=== PATIENT | female | born 1945 | race Caucasian/White ===

== ENCOUNTER 2018-04-05 12:36 | Outpatient (CLI) | payer MEDICARE | END 2018-04-05 12:37 | disposition home or self-care (01) | LOC: BICMAMMO 12:36 | PROVIDERS: ATTEND Internal Medicine | DX: Z12.31 Encounter for screening mammogram for malignant neoplasm of breast (principal); R92.1 Mammographic calcification found on diagnostic imaging of breast; N64.89 Other specified disorders of breast; Z80.3 Family history of malignant neoplasm of breast; Z80.41 Family history of malignant neoplasm of ovary | CPT/HCPCS: 77063; 77067 ==

== ENCOUNTER 2018-04-07 14:20 | Outpatient (CLI) | payer MEDICARE | END 2018-04-07 14:21 | disposition home or self-care (01) | LOC: BICMAMMO 14:20 | PROVIDERS: ATTEND Internal Medicine | DX: R92.2 Inconclusive mammogram (principal); Z80.3 Family history of malignant neoplasm of breast | CPT/HCPCS: 76642; 77065; G0279 ==

== ENCOUNTER → 2018-04-20 | Day surgery (SDC) | payer MEDICARE ==
--- NOTE | 2018-04-20 15:46 | ULT ---
ULTRASOUND GUIDED RIGHT BREAST BIOPSY 04/20/18 PROVIDED CLINICAL HISTORY: Right breast mass. FINDINGS: Informed consent was obtained from the patient. the known 9 o'clock right breast mass was localized s onographically and the skin overlying this region prepped and draped in the usual sterile manner. Sof t tissues were infiltrated with 1% lidocaine. Small incision was made. Under continuous sonographic g uidance, a 14 gauge core biopsy device was advanced adjacent to the lesion with multiple core samples obtained. The needle was withdrawn and a biopsy clip was inserted under continuous sonographic guid ance. The biopsy clip deployment device was removed and hemostasis achieved. No immediate complicatio ns. Postprocedure mammograms demonstrate appropriate clip deployment. IMPRESSION: Technically successful right breast biopsy. Please correlate with histology results to follow. POS: MARY CARMEN
== END ==
LOC: BICULT 12:09
PROVIDERS: ATTEND Surgery
PROC: 0HBT3ZX Excision of Right Breast, Percutaneous Approach, Diagnostic (ICD-10-PCS; principal; 2018-04-20)
DX: C50.811 Malignant neoplasm of overlapping sites of right female breast (principal); Z88.2 Allergy status to sulfonamides
CPT/HCPCS: 19100; 76942; 88305; 88341; 88342

== ENCOUNTER 2018-05-07 11:53 | Outpatient (CLI) | payer MEDICARE ==
[2018-05-07 13:32] LABS: #Basophils 0.1 thou/uL (0.0-0.2); #Eosinphils 0.2 thou/uL (0.0-0.7); #Lymphocytes 2.2 thou/uL (1.20-3.40); #Monocytes 0.6 thou/uL (0.11-0.59); %Basophils 0.9 % (0.0-1.0); %Eosinophils 2.5 % (0.0-10.0); %Lymphocytes 31.1 % (21.0-51.0); %Monocytes 7.9 % (0.0-10.0); %Neutrophils 57.5 % (42.0-75.0); Hemoglobin 12.6 g/dL (12.0-16.0); Mean Corpuscular HGB CONC 32.7 g/dL (32.0-36.0); Mean Corpuscular Hemoglobin 32.2 pg (27.0-31.0); Mean Corpuscular Volume 98.3 fL (78.0-98.0); Mean Platelet Volume 8.8 fL (7.4-10.4); Platelet Count 216 thou/uL (130-400); RBC Distribution Width 11.9 % (11.5-14.5); Red Blood Cell (RBC) Count 3.92 mill/uL (4.20-5.40); White Blood Cell (WBC) Count 6.9 thou/uL (4.8-10.8)
[2018-05-07 14:01] LABS: ALT (SGPT) 14 U/L (8-55); AST (SGOT) 20 U/L (5-34); Albumin 4.2 g/dL (3.4-4.8); Alkaline Phosphatase 67 U/L (40-150); Anion Gap 10 mmol/L (10-20); BUN (Urea Nitrogen) 13 mg/dL (9.8-20.1); Bilirubin, Total 0.4 mg/dL (0.2-1.2); Calc. Creatinine Clearance 0 mL/min (70-130); Calcium 9.4 mg/dL (7.8-10.44); Carbon Dioxide 28 mmol/L (23-31); Chloride 103 mmol/L (98-107); Estimated GFR-MDRD 81; Globulin 2.9 g/dL (2.4-3.5); Glucose 82 mg/dL (83-110); Potassium 4.1 mmol/L (3.5-5.1); Protein, Total 7.1 g/dL (6.0-8.3); Sodium 137 mmol/L (136-145)
--- NOTE | 2018-05-13 05:58 | EKG ---
Test Reason : Blood Pressure : / mmHG Vent. Rate : 050 BPM Atrial Rate : 050 BPM P-R Int : 156 ms QRS Dur : 086 ms QT Int : 426 ms P-R-T Axes : 070 089 068 degrees QTc Int : 388 ms Sinus bradycardia Otherwise normal ECG No previous ECGs available Confirmed by SONY ACOSTA ([id number]) on 05/13/2018 5:57:52 AM Referred By: ARIK Confirmed By:SONY ACOSTA
== END 2018-05-07 11:54 | disposition home or self-care (01) ==
LOC: LABBT 11:53
PROVIDERS: ATTEND Surgery
DX: Z01.812 Encounter for preprocedural laboratory examination (principal); C50.911 Malignant neoplasm of unspecified site of right female breast
CPT/HCPCS: 80053; 85025; 93005; 93010

== ENCOUNTER 2018-05-12 06:55 | Day surgery (SDC) | payer MEDICARE ==
[2018-05-07 13:13] VITALS: BMI 23.1
[2018-05-12] MEDS ORDERED: CEFAZOLIN/Water 2 GM/20 ML SYRINGE ONE (10:31)
[2018-05-12] MEDS ORDERED: Isosulfan Blue 50 MG/5 ML VIAL ONE (10:32)
[2018-05-12] MEDS ORDERED: Bupivacaine HCl 0.5%/Epinephrine 1:200,000/PF 30 ml Vial ONE (10:32)
[2018-05-12] MEDS ORDERED: Lidocaine 2% PF 5 ML VIAL ONE (10:32)
[2018-05-12] MEDS ORDERED: Fentanyl 100 MCG/2 ML VIAL ONE ×2 (10:35→12:34)
[2018-05-12] MEDS ORDERED: Famotidine/PF 20 mg/2ml Vial ONE (10:35)
--- NOTE | 2018-05-12 11:23 | NM ---
NUCLEAR MEDICINE LYMPHOSCINTIGRAPHY: HISTORY: A 72-year-old female with a history of malignant neoplasm of unspecified site, unspecified female bernardino ast. FINDINGS: Approximately 0.4 mCi Technetium 99m filtered sulfur colloid was injected subcutaneously around the a reola. Immediate imaging demonstrates a focal area of increased activity in the right axilla consistent with a lymph node. IMPRESSION: Successful lymphoscintigraphy with increased activity in a right axillary lymph node. POS: MARY CARMEN
[2018-05-12] MEDS ORDERED: Promethazine HCl 25 MG/ML VIAL IM PRN (12:31)
[2018-05-12] MEDS ORDERED: Meperidine HCl/PF 25 MG/ML VIAL SLOW IVP PRN (12:31)
[2018-05-12] MEDS ORDERED: HYDROmorphone 2 MG/ML VIAL SLOW IVP PRN (12:31)
[2018-05-12] MEDS ORDERED: Ondansetron HCl/PF 4 MG/2 ML Vial IVP PRN (12:31)
[2018-05-12] MEDS ORDERED: Promethazine HCl 25 MG/ML VIAL SLOW IVP PRN (12:31)
[2018-05-12] MEDS ORDERED: Ketorolac Tromethamine 30 MG/ML VIAL IVP PRN (12:31)
[2018-05-12] MEDS ORDERED: Morphine 2 MG/ML SYRINGE ONE (13:07)
--- NOTE | 2018-05-12 14:06 | MMO ---
MAMMOGRAPHIC GUIDED RIGHT BREAST MASS NEEDLE LOCALIZATION: INDICATIONS: Right breast cancer. TECHNIQUE: Informed consent was obtained. The patient was positioned in LM positioning in the mammographic unit . Pre-procedure mammograms were obtained. Localization of the right breast mass and clip was perfor med. The site overlying this region, at the lateral aspect of the right breast, was sterilely preppe d and draped. Buffered 1% Lidocaine was administered to the overlying subcutaneous tissues. Under m ammographic guidance, a 7.5 cm [place] needle was guided through the lesion, and a 90 projection was obtained to verify needle positioning. The patient tolerated the procedure without difficulty. IMPRESSION: BI-RADS category 6-Known biopsy proven malignancy, status post mammographic guided needle and wire lo calization of the right breast mass with associated clip. POS: MARY CARMEN
--- NOTE | 2018-05-12 14:08 | MMO ---
RIGHT BREAST MASS SURGICAL SPECIMEN: FINDINGS: The surgical specimen does contain the mass, clip, as well as portions of the wire. IMPRESSION: BIRADS category 6 - known biopsy-proven malignancy. The specimen contains the mass, as well as the m etallic wire. Findings were called to Dr. Salas in the operating room at 11:55 a.m. on 05/12/2018. CODE CR POS: [facility]
[2018-05-12] MEDS ORDERED: traMADol HCl 50 MG TAB ONE (14:24)
[2018-05-12] MEDS ORDERED: Ketorolac Tromethamine 30 MG/ML VIAL ONE (15:06)
[2018-05-12] MEDS ORDERED: Ondansetron PF 4 MG/2 ML Vial ONE (15:06)
[2018-05-12] MEDS ORDERED: Lidocaine 1% PF 5 ML VIAL ONE (15:06)
[2018-05-12] MEDS ORDERED: ePHEDrine/0.9% NaCl/PF SYRINGE 50 mg/10 ml ONE (15:06)
[2018-05-12] MEDS ORDERED: PROPOFOL 200 MG/20 ML VIAL ONE (15:06)
[2018-05-12] MEDS ORDERED: PHENYLEPHRINE-NS 100 MCG/ML 10 ML SYRINGE ONE ×2 (15:06)
[2018-05-12] MEDS ORDERED: Dexamethasone 20 MG/5 ML VIAL ONE (15:06)
--- NOTE | 2018-05-13 13:00 | OP ---
DATE OF PROCEDURE: 05/12/2018 PREOPERATIVE DIAGNOSIS: Right breast cancer. SURGEON: Gurpreet Salas M.D. PROCEDURE PERFORMED: Right needle localization lumpectomy with sentinel lymph node biopsy. INDICATIONS: This is a 72-year-old female who had a change in her mammogram. She underwent a core n eedle biopsy positive for adenocarcinoma. FINDINGS: Single sentinel node was found. It was negative by touch prep. Successful removal of the tumor and clip. PROCEDURE IN DETAIL: After informed consent was obtained, patient was taken to the operating room an d given general endotracheal anesthesia. She had undergone injection of radionucleotide as well as p lacement of a localizing needle in Radiology department. Her right breast and axilla were prepped an d draped in usual fashion. Lymphazurin infiltrated subareolar and peritumoral. The Neoprobe was use d. A baseline was performed with counts around 5, transcutaneous counts of 25 were found in one spot . A longitudinal axillary incision was performed. The subcu divided sharply and was traced down to in vivo count of 120. A single fairly small lymph node was found. This was dissected out. Efferent and afferent lymphatics were ligated with 3-0 Vicryl ties. Ex vivo counts of 160 were found. This was sent as sentinel node. All subsequent counts were less than 10. No other high spots were found. While awaiting the results of the biopsy, a curvilinear incision was performed. The subcu divided sharply and a core of breast tissue excised around the needle tract. This was marked with the blue d ye as medial. The needle as anterior and a suture was then used to tony superior, sent to mammograph y, which revealed it did contain the clip, the mass and the wire sent to pathology for further analys is. Hemostasis was achieved utilizing electrocautery as well as interrupted 3-0 Vicryl suture. Subc u reapproximated with interrupted 3-0 Vicryl. Skin closed with a running subcuticular 4-0 Rapide. S josé miguel-Strips applied. Sterile bandage applied. The patient tolerated the procedure well and was powell sferred to recovery in good condition. Sponge and needle count verified correct x2.
== END 2018-05-12 15:27 | disposition home or self-care (01) ==
LOC: SDC 06:55
PROVIDERS: ATTEND Surgery
PROC: 0HBT0ZZ Excision of Right Breast, Open Approach (ICD-10-PCS; principal; 2018-05-12)
PROC: 07B50ZX Excision of Right Axillary Lymphatic, Open Approach, Diagnostic (ICD-10-PCS; 2018-05-12)
DX: C50.511 Malignant neoplasm of lower-outer quadrant of right female breast (principal); D64.9 Anemia, unspecified; E78.00 Pure hypercholesterolemia, unspecified; Z88.2 Allergy status to sulfonamides; Z79.899 Other long term (current) drug therapy
CPT/HCPCS: 19281; 19301; 38525; 76098; 78195; 88307; 88333; 88341; 88342; 96374; A9541; Q9968; J0131; J0670; J1100; J1885; J2001; J2270; J2405; J2704; J3010; S0028

== ENCOUNTER 2018-09-27 14:20 | Outpatient (CLI) | payer MEDICARE ==
--- NOTE | 2018-09-27 15:49 | ULT ---
SOFT TISSUE RIGHT AXILLA: Indication: Right axilla pain. Previous resection. FINDINGS: No mass or adenopathy identified. No sonographic abnormality is seen in the right axilla at the site of pain. IMPRESSION: Unremarkable soft tissue ultrasound right axilla. POS: MARY CARMEN
== END 2018-09-27 14:21 | disposition home or self-care (01) ==
LOC: BICULT 14:20
PROVIDERS: ATTEND Surgery
DX: D36.10 Benign neoplasm of peripheral nerves and autonomic nervous system, unspecified (principal)
CPT/HCPCS: 76999

== ENCOUNTER 2019-03-23 13:49 | Outpatient (CLI) | payer MEDICARE ==
--- NOTE | 2019-03-23 14:20 | RAD ---
4 VIEW CERVICAL SPINE SERIES: Date: 03/23/19 INDICATION: Neck pain. FINDINGS: Moderate multilevel degenerative changes of the cervical spine present. Extension and flexion views r eveal no significant translational motion. No compression deformity. IMPRESSION: Moderate multilevel degenerative change without significant subluxation or translational motion. POS: [facility]
== END 2019-03-23 13:50 | disposition home or self-care (01) ==
LOC: RAD 13:49
PROVIDERS: ATTEND Nurse Practitioner Family
DX: M47.22 Other spondylosis with radiculopathy, cervical region (principal)
CPT/HCPCS: 72050

== ENCOUNTER 2019-04-22 13:19 | Outpatient (CLI) | payer MEDICARE ==
--- NOTE | 2019-04-22 14:08 | MMO ---
Bilateral MAMMO Bilat Diag [facility]. CLINICAL HISTORY: Patient is 73 years old and is seen for diagnostic exam. The patient has the following family history of breast cancer: sister. The patient has a history of invasive ductal right breast carcinoma in April,. The patient has a history of right Ultrasound Guided Core Biopsy in April, - invasive ductal carcinoma and right Lumpectomy in April, - invasive ductal carcinoma. VIEWS: The views performed were: bilateral craniocaudal with tomosynthesis; bilateral mediolateral oblique with tomosynthesis; and bilateral mediolateral with tomosynthesis. FILMS COMPARED: The present examination has been compared to prior imaging studies performed at [facility] on 03/10/2016, 04/03/2017, 04/05/2018 and 04/07/2018. This study has been interpreted with the assistance of computer-aided detection. MAMMOGRAM FINDINGS: There are scattered fibroglandular densities. Finding 1: There are new post operative changes seen in the right breast. Finding 2: There are benign appearing calcifications seen in the left breast. There are no suspicious masses, suspicious calcifications, or new areas of architectural distortion. IMPRESSION: THERE IS NO MAMMOGRAPHIC EVIDENCE OF MALIGNANCY. A ROUTINE FOLLOW-UP MAMMOGRAM IN 1 YEAR IS RECOMMENDED. THE RESULTS OF THIS EXAM WERE SENT TO THE PATIENT. ACR BI-RADS Category 2 - Benign finding MAMMOGRAPHY NOTE: 1. A negative mammogram report should not delay a biopsy if a dominant of clinically suspicious mass is present. 2. Approximately 10% to 15% of breast cancers are not detected by mammography. 3. Adenosis and dense breasts may obscure an underlying neoplasm. Reported by: NINA FRIEND MD Electonically Signed: [id number]
== END 2019-04-22 13:20 | disposition home or self-care (01) ==
LOC: BICMAMMO 13:19
PROVIDERS: ATTEND Internal Medicine Hematology & Oncology
DX: C50.911 Malignant neoplasm of unspecified site of right female breast (principal)
CPT/HCPCS: 77066; G0279

== ENCOUNTER 2021-05-23 14:48 | Outpatient (CLI) | payer MEDICARE | END 2021-05-23 14:49 | disposition home or self-care (01) | LOC: BICMAMMO 14:48 | PROVIDERS: ATTEND Internal Medicine Hematology & Oncology | DX: C50.411 Malignant neoplasm of upper-outer quadrant of right female breast (principal); M81.0 Age-related osteoporosis without current pathological fracture; T38.6X5A Adverse effect of antigonadotrophins, antiestrogens, antiandrogens, not elsewhere classified, initial encounter; M85.89 Other specified disorders of bone density and structure, multiple sites | CPT/HCPCS: 77066; 77080; G0279 ==

== ENCOUNTER 2022-05-26 10:47 | Outpatient (CLI) | payer MEDICARE | END 2022-05-26 10:48 | disposition home or self-care (01) | LOC: BICMAMMO 10:47 | PROVIDERS: ATTEND Internal Medicine Hematology & Oncology | DX: M81.0 Age-related osteoporosis without current pathological fracture (principal); C50.411 Malignant neoplasm of upper-outer quadrant of right female breast; T38.6X5A Adverse effect of antigonadotrophins, antiestrogens, antiandrogens, not elsewhere classified, initial encounter; M85.851 Other specified disorders of bone density and structure, right thigh; M85.852 Other specified disorders of bone density and structure, left thigh | CPT/HCPCS: 77066; 77080; G0279 ==

== ENCOUNTER 2023-04-26 09:11 | Emergency (ER) | payer MEDICARE ==
[2023-04-26] MEDS ORDERED: Morphine 4 MG/ML VIAL ONE (10:33)
[2023-04-26 10:43] LABS: #Eosinphils 0.3 thou/uL (0.0-0.7); %Basophils 0.2 % (0.0-1.0); %Eosinophils 2.6 % (0.0-10.0); %Lymphocytes 13.4 % (21.0-51.0); %Monocytes 10.8 % (0.0-10.0); %Neutrophils 72.6 % (42.0-75.0); Hematocrit 37.3 % (36.0-47.0); Hemoglobin 12.2 g/dL (12.0-16.0); Mean Corpuscular HGB CONC 32.7 g/dL (32.0-36.0); Mean Corpuscular Hemoglobin 31.2 pg (27.0-31.0); Mean Corpuscular Volume 95.4 fl (78.0-98.0); Mean Platelet Volume 10.9 fL (7.4-10.4); Platelet Count 201 10x3/uL (130-400); RBC Distribution Width 13.9 % (11.5-14.5); Red Blood Cell (RBC) Count 3.91 mill/uL (4.20-5.40); White Blood Cell (WBC) Count 9.6 10x3/uL (4.8-10.8)
[2023-04-26] MEDS ORDERED: Iopamidol-370 76% 500 ML MDV (1 ML CHARGE) ONE (10:55)
[2023-04-26 11:10] LABS: ALT (SGPT) 18 U/L (8-55); AST (SGOT) 20 U/L (5-34); Albumin 3.5 g/dL (3.4-4.8); Alkaline Phosphatase 82 U/L (40-110); Anion Gap 11 mmol/L (10-20); BUN (Urea Nitrogen) 13 mg/dL (9.8-20.1); Bilirubin, Total 0.4 mg/dL (0.2-1.2); Calc. Creatinine Clearance 0 mL/min (70-130); Calcium 9.2 mg/dL (7.8-10.44); Carbon Dioxide 29 mmol/L (23-31); Chloride 101 mmol/L (98-107); Estimated GFR 91; Globulin 3.1 g/dL (2.4-3.5); Glucose 92 mg/dL (83-110); Lipase Less than 4 U/L (8-78); Potassium 4.3 mmol/L (3.5-5.1); Protein, Total 6.6 g/dL (5.8-8.1); Sodium 137 mmol/L (136-145)
[2023-04-26 12:15] LABS: Bacteria/HPF None Seen HPF (None Seen); Bilirubin Negative (Negative); Blood, Urine Negative (Negative); CAUTI Indications for Culture Pelvic or flank pain; Clarity Clear (Clear); Glucose, Urine (Dipstick) Normal (Negative); Ketone, Urine Negative (Negative); Leukocyte Negative Leu/uL (Negative); Nitrite Negative (Negative); Protein, Urine (Dipstick) Negative (Neg-Trace); RBC/HPF 0-3 HPF (0-3); Specific Gravity, Urine 1.009 (1.002-1.036); Squamous Epithelial 0-3 HPF (0-3); Urobilinogen Normal mg/dL (Less than 2); WBC/HPF 0-3 HPF (0-3)
[2023-04-26 12:19] LABS: Urine Culture Reflex No No
[2023-04-26] MEDS ORDERED: HYDROcodone/Acetaminophen 5/325 mg Tablet ONE (14:22)
== END 2023-04-26 14:22 | disposition home or self-care (01) ==
LOC: ERS 09:11
DX: M54.9 Dorsalgia, unspecified (principal)
CPT/HCPCS: 36415; 74177; 80053; 81001; 83690; 85025; 96361; 96374; J2270; Q9967

== ENCOUNTER 2023-06-23 08:54 | Outpatient (CLI) | payer MEDICARE | END 2023-06-23 08:55 | disposition home or self-care (01) | LOC: BICMAMMO 08:54 | PROVIDERS: ATTEND Internal Medicine Hematology & Oncology | DX: Z08 Encounter for follow-up examination after completed treatment for malignant neoplasm (principal); M81.0 Age-related osteoporosis without current pathological fracture; M85.851 Other specified disorders of bone density and structure, right thigh; M85.852 Other specified disorders of bone density and structure, left thigh; Z85.3 Personal history of malignant neoplasm of breast | CPT/HCPCS: 77066; 77080; G0279 ==

== ENCOUNTER 2023-12-30 12:18 | Emergency (ER) | payer MEDICARE ==
[2023-12-30 13:46] LABS: #Basophils 0.03 10x3/uL (0.0-0.2); %Basophils 0.3 % (0.0-1.0); %Eosinophils 2.1 % (0.0-10.0); %Lymphocytes 21.5 % (21.0-51.0); %Monocytes 10.5 % (0.0-10.0); %Neutrophils 65.4 % (42.0-75.0); Hematocrit 40.3 % (36.0-47.0); Hemoglobin 13.3 g/dL (12.0-16.0); Mean Corpuscular Hemoglobin 30.9 pg (27.0-31.0); Mean Corpuscular Volume 93.7 fL (78.0-98.0); Mean Platelet Volume 12.1 fL (7.4-10.4); Platelet Count 221 10x3/uL (130-400); RBC Distribution Width 13.7 % (11.5-14.5)
[2023-12-30] MEDS ORDERED: Aspirin Chewable 81 MG TAB ONE (14:02)
[2023-12-30 14:04] LABS: Troponin I Less than 0.010 ng/mL (< 0.028)
[2023-12-30 14:38] LABS: ALT (SGPT) 12 U/L (8-55); AST (SGOT) 18 U/L (5-34); Albumin 3.5 g/dL (3.4-4.8); Alkaline Phosphatase 103 U/L (40-110); Anion Gap 13 mmol/L (10-20); BUN (Urea Nitrogen) 23 mg/dL (9.8-20.1); Bilirubin, Total 0.3 mg/dL (0.2-1.2); Calc. Creatinine Clearance 0 mL/min (70-130); Calcium 9.5 mg/dL (7.8-10.44); Carbon Dioxide 27 mmol/L (23-31); Chloride 103 mmol/L (98-107); Estimated GFR 89; Globulin 3.6 g/dL (2.4-3.5); Glucose 53 mg/dL (83-110); Potassium 4.2 mmol/L (3.5-5.1); Protein, Total 7.1 g/dL (5.8-8.1); Sodium 139 mmol/L (136-145)
[2023-12-30 15:40] LABS: Troponin I Less than 0.010 ng/mL (< 0.028)
== END 2023-12-30 16:19 | disposition home or self-care (01) ==
LOC: ERS 12:18
DX: R07.89 Other chest pain (principal); F03.90 Unspecified dementia, unspecified severity, without behavioral disturbance, psychotic disturbance, mood disturbance, and anxiety
CPT/HCPCS: 36415; 71045; 80053; 84484; 85025; 93005

== ENCOUNTER 2025-03-17 18:06 | Inpatient (IN) | payer MEDICARE ==
[2025-03-17 18:52] LABS: #Basophils 0.05 10x3/uL (0.0-0.2); #Eosinophils 0.11 10x3/uL (0.0-0.7); #Monocytes 1.45 10x3/uL (0.11-0.59); #Neutrophils 12.14 10x3/uL (1.40-6.50); %Basophils 0.3 % (0.0-1.0); %Eosinophils 0.7 % (0.0-10.0); %Lymphocytes 7.9 % (21.0-51.0); %Monocytes 9.7 % (0.0-10.0); %Neutrophils 81.1 % (42.0-75.0); Hematocrit 46.0 % (36.0-47.0); Hemoglobin 14.5 g/dL (12.0-16.0); Mean Corpuscular Hemoglobin 29.4 pg (27.0-31.0); Mean Corpuscular Volume 93.1 fL (78.0-98.0); Platelet Count 154 10x3/uL (130-400); Red Blood Cell (RBC) Count 4.94 mill/uL (4.20-5.40); White Blood Cell (WBC) Count 14.99 10x3/uL (4.8-10.8)
[2025-03-17 19:10] LABS: ALT (SGPT) 18 U/L (Less than 34); AST (SGOT) 38 U/L (11-34); Albumin 3.3 g/dL (3.1-4.5); Alkaline Phosphatase 112 U/L (40-110); Anion Gap 13 mmol/L (10-20); BUN (Urea Nitrogen) 18 mg/dL (9.8-20.1); Bilirubin, Total 0.5 mg/dL (0.3-1.2); Calc. Creatinine Clearance 0 mL/min (70-130); Calcium 9.2 mg/dL (7.8-10.44); Carbon Dioxide 25 mmol/L (23-31); Chloride 107 mmol/L (98-107); Globulin 5.0 g/dL (2.4-3.5); Glucose 118 mg/dL (83-110); Potassium 4.2 mmol/L (3.5-5.1); Sodium 141 mmol/L (136-145)
[2025-03-17] MEDS ORDERED: Ondansetron PF 4 MG/2 ML Vial IVP PRN (20:41)
[2025-03-17] MEDS ORDERED: CEFAZOLIN 1 GM VIAL ONE (20:45)
[2025-03-17] MEDS ORDERED: Vancomycin 1 GM/200 ML (PREMIX FOIL) BAG ONE (20:45)
[2025-03-17 23:46] VITALS: BMI 29.8
[2025-03-18] MEDS: Clindamycin/D5W 900 MG in Premix 1 BAG IVPB SCH (00:07)
[2025-03-18] MEDS: Vancomycin 1.25 GM / NS 250 ML VIAL-2-BAG IVPB SCH ×2 (00:13→21:47)
[2025-03-18 05:21] LABS: #Basophils Less than 0.03 10x3/uL (0.0-0.2); #Eosinophils 0.12 10x3/uL (0.0-0.7); #Monocytes 1.43 10x3/uL (0.11-0.59); #Neutrophils 9.05 10x3/uL (1.40-6.50); %Basophils 0.2 % (0.0-1.0); %Eosinophils 1.0 % (0.0-10.0); %Lymphocytes 13.6 % (21.0-51.0); %Monocytes 11.6 % (0.0-10.0); %Neutrophils 73.0 % (42.0-75.0); Hematocrit 39.0 % (36.0-47.0); Hemoglobin 12.3 g/dL (12.0-16.0); Mean Corpuscular Hemoglobin 29.4 pg (27.0-31.0); Mean Corpuscular Volume 93.3 fL (78.0-98.0); Platelet Count 152 10x3/uL (130-400); Red Blood Cell (RBC) Count 4.18 mill/uL (4.20-5.40); White Blood Cell (WBC) Count 12.37 10x3/uL (4.8-10.8)
[2025-03-18 05:49] LABS: Vancomycin, Random 32.9 ug/mL (See Comment)
[2025-03-18 05:51] LABS: ALT (SGPT) 18 U/L (Less than 34); AST (SGOT) 28 U/L (11-34); Albumin 2.4 g/dL (3.1-4.5); Alkaline Phosphatase 90 U/L (40-110); Bilirubin, Direct 0.3 mg/dL (0.1-0.3); Bilirubin, Total 0.6 mg/dL (0.3-1.2)
[2025-03-18 05:55] LABS: Anion Gap 15 mmol/L (10-20); BUN (Urea Nitrogen) 15 mg/dL (9.8-20.1); Calc. Creatinine Clearance 94 mL/min (70-130); Calcium 7.8 mg/dL (7.8-10.44); Carbon Dioxide 24 mmol/L (23-31); Chloride 108 mmol/L (98-107); Glucose 104 mg/dL (83-110); Potassium 3.8 mmol/L (3.5-5.1); Sodium 143 mmol/L (136-145)
[2025-03-18] MEDS: Gabapentin 300 MG CAP PO SCH (09:00)
[2025-03-18] MEDS: Acetaminophen 325 MG TAB PO PRN (14:35)
[2025-03-18] MEDS ORDERED: VANCOMYCIN 1.75 GM/350 ML Premix BAG IVPB SCH (21:00)
[2025-03-19 05:24] LABS: #Basophils 0.03 10x3/uL (0.0-0.2); #Eosinophils 0.31 10x3/uL (0.0-0.7); #Monocytes 1.33 10x3/uL (0.11-0.59); #Neutrophils 10.55 10x3/uL (1.40-6.50); %Basophils 0.2 % (0.0-1.0); %Eosinophils 2.3 % (0.0-10.0); %Lymphocytes 10.1 % (21.0-51.0); %Monocytes 9.7 % (0.0-10.0); %Neutrophils 77.3 % (42.0-75.0); Hematocrit 42.8 % (36.0-47.0); Hemoglobin 13.1 g/dL (12.0-16.0); Mean Corpuscular Hemoglobin 29.0 pg (27.0-31.0); Mean Corpuscular Volume 94.7 fL (78.0-98.0); Platelet Count 154 10x3/uL (130-400); Red Blood Cell (RBC) Count 4.52 mill/uL (4.20-5.40); White Blood Cell (WBC) Count 13.65 10x3/uL (4.8-10.8)
[2025-03-19 05:42] LABS: Anion Gap 11 mmol/L (10-20); BUN (Urea Nitrogen) 13 mg/dL (9.8-20.1); Calc. Creatinine Clearance 109 mL/min (70-130); Calcium 8.4 mg/dL (7.8-10.44); Carbon Dioxide 26 mmol/L (23-31); Chloride 106 mmol/L (98-107); Glucose 96 mg/dL (83-110); Potassium 3.9 mmol/L (3.5-5.1); Sodium 139 mmol/L (136-145)
[2025-03-19] MEDS: Gabapentin 300 MG CAP PO SCH (21:07)
[2025-03-19] MEDS: Vancomycin 1.5 GM / NS 500 ML VIAL-2-BAG IVPB SCH (22:19)
[2025-03-20 05:58] LABS: #Basophils 0.03 10x3/uL (0.0-0.2); #Eosinophils 0.19 10x3/uL (0.0-0.7); #Monocytes 1.13 10x3/uL (0.11-0.59); #Neutrophils 11.27 10x3/uL (1.40-6.50); %Basophils 0.2 % (0.0-1.0); %Eosinophils 1.4 % (0.0-10.0); %Lymphocytes 9.3 % (21.0-51.0); %Monocytes 8.1 % (0.0-10.0); %Neutrophils 80.6 % (42.0-75.0); Hematocrit 38.9 % (36.0-47.0); Hemoglobin 12.5 g/dL (12.0-16.0); Mean Corpuscular Hemoglobin 29.4 pg (27.0-31.0); Mean Corpuscular Volume 91.5 fL (78.0-98.0); Platelet Count 190 10x3/uL (130-400); Red Blood Cell (RBC) Count 4.25 mill/uL (4.20-5.40); White Blood Cell (WBC) Count 13.97 10x3/uL (4.8-10.8)
[2025-03-20 06:14] LABS: Anion Gap 12 mmol/L (10-20); BUN (Urea Nitrogen) 11 mg/dL (9.8-20.1); Calc. Creatinine Clearance 113 mL/min (70-130); Calcium 8.4 mg/dL (7.8-10.44); Carbon Dioxide 23 mmol/L (23-31); Chloride 107 mmol/L (98-107); Glucose 113 mg/dL (83-110); Potassium 4.0 mmol/L (3.5-5.1); Sodium 138 mmol/L (136-145); Vancomycin, Random 21.5 ug/mL (See Comment)
[2025-03-20] MEDS: PNEUMOC 20-VAL CONJ-DIP CRM/PF 0.5 ML SYRINGE IM ONE (09:04)
[2025-03-20] MEDS: Gabapentin 300 MG CAP PO SCH (21:39)
[2025-03-21 05:34] LABS: #Basophils 0.03 10x3/uL (0.0-0.2); #Eosinophils 0.32 10x3/uL (0.0-0.7); #Monocytes 1.23 10x3/uL (0.11-0.59); #Neutrophils 9.59 10x3/uL (1.40-6.50); %Basophils 0.2 % (0.0-1.0); %Eosinophils 2.5 % (0.0-10.0); %Lymphocytes 12.3 % (21.0-51.0); %Monocytes 9.6 % (0.0-10.0); %Neutrophils 75.0 % (42.0-75.0); Hematocrit 41.7 % (36.0-47.0); Hemoglobin 13.1 g/dL (12.0-16.0); Mean Corpuscular Hemoglobin 28.7 pg (27.0-31.0); Mean Corpuscular Volume 91.4 fL (78.0-98.0); Platelet Count 213 10x3/uL (130-400); Red Blood Cell (RBC) Count 4.56 mill/uL (4.20-5.40); White Blood Cell (WBC) Count 12.79 10x3/uL (4.8-10.8)
[2025-03-22] MEDS: Ketorolac Tromethamine 30 MG (1 mL) VIAL IVP SCH (21:45)
[2025-03-23 14:22] LABS: Influenza A by NAA Not Detected (NotDetected); Influenza B by NAA Not Detected (NotDetected); SARS-CoV-2 NAA Rapid Test Not Detected (NotDetected)
[2025-03-23 16:49] VITALS: BMI 29.8
[2025-03-23 18:16] LABS: ALT (SGPT) 49 U/L (Less than 34); AST (SGOT) 59 U/L (11-34); Albumin 2.7 g/dL (3.1-4.5); Alkaline Phosphatase 115 U/L (40-110); Anion Gap 14 mmol/L (10-20); BUN (Urea Nitrogen) 18 mg/dL (9.8-20.1); Bilirubin, Total 0.3 mg/dL (0.3-1.2); Calc. Creatinine Clearance 78 mL/min (70-130); Calcium 9.3 mg/dL (7.8-10.44); Carbon Dioxide 26 mmol/L (23-31); Chloride 104 mmol/L (98-107); Globulin 4.7 g/dL (2.4-3.5); Glucose 98 mg/dL (83-110); Potassium 4.2 mmol/L (3.5-5.1); Sodium 140 mmol/L (136-145)
[2025-03-24 05:12] LABS: #Basophils 0.09 10x3/uL (0.0-0.2); #Eosinophils 0.70 10x3/uL (0.0-0.7); #Monocytes 1.68 10x3/uL (0.11-0.59); #Neutrophils 13.18 10x3/uL (1.40-6.50); %Basophils 0.5 % (0.0-1.0); %Eosinophils 3.9 % (0.0-10.0); %Lymphocytes 11.0 % (21.0-51.0); %Monocytes 9.5 % (0.0-10.0); %Neutrophils 74.3 % (42.0-75.0); Hematocrit 45.2 % (36.0-47.0); Hemoglobin 14.0 g/dL (12.0-16.0); Mean Corpuscular Hemoglobin 29.2 pg (27.0-31.0); Mean Corpuscular Volume 94.4 fL (78.0-98.0); Platelet Count 310 10x3/uL (130-400); Red Blood Cell (RBC) Count 4.79 mill/uL (4.20-5.40); White Blood Cell (WBC) Count 17.74 10x3/uL (4.8-10.8)
[2025-03-24 16:35] LABS: CAUTI Indications for Culture Fever or rigors; Glucose, Urine (Dipstick) Normal (Negative); Leukocyte 75 Leu/uL (Negative); Protein, Urine (Dipstick) 20 mg/dL (Neg-Trace); RBC/HPF 0-3 HPF (0-3); Specific Gravity, Urine 1.022 (1.002-1.036); Yeast-Budding 1+ HPF (None Seen)
[2025-03-24 16:36] LABS: Bacteria/HPF 1+ HPF (None Seen); Urine Culture Reflex No No
[2025-03-24] MEDS: Cyclobenzaprine 10 MG TAB PO SCH (23:01)
[2025-03-25 05:02] LABS: #Basophils 0.07 10x3/uL (0.0-0.2); #Eosinophils 0.71 10x3/uL (0.0-0.7); #Monocytes 1.42 10x3/uL (0.11-0.59); #Neutrophils 8.88 10x3/uL (1.40-6.50); %Basophils 0.5 % (0.0-1.0); %Eosinophils 5.2 % (0.0-10.0); %Lymphocytes 17.8 % (21.0-51.0); %Monocytes 10.4 % (0.0-10.0); %Neutrophils 65.1 % (42.0-75.0); Hematocrit 42.0 % (36.0-47.0); Hemoglobin 12.9 g/dL (12.0-16.0); Mean Corpuscular Hemoglobin 28.9 pg (27.0-31.0); Mean Corpuscular Volume 94.0 fL (78.0-98.0); Platelet Count 324 10x3/uL (130-400); Red Blood Cell (RBC) Count 4.47 mill/uL (4.20-5.40); White Blood Cell (WBC) Count 13.63 10x3/uL (4.8-10.8)
[2025-03-25 05:33] LABS: Anion Gap 11 mmol/L (10-20); BUN (Urea Nitrogen) 15 mg/dL (9.8-20.1); Calc. Creatinine Clearance 103 mL/min (70-130); Calcium 9.0 mg/dL (7.8-10.44); Carbon Dioxide 23 mmol/L (23-31); Chloride 107 mmol/L (98-107); Glucose 90 mg/dL (83-110); Potassium 4.5 mmol/L (3.5-5.1); Sodium 136 mmol/L (136-145)
[2025-03-25] MEDS: Transdermal Patch Removal TOP SCH (17:23)
[2025-03-25] MEDS: Cyclobenzaprine 10 MG TAB PO SCH (20:26)
[2025-03-27 05:39] LABS: #Basophils 0.05 10x3/uL (0.0-0.2); #Eosinophils 0.45 10x3/uL (0.0-0.7); #Monocytes 1.25 10x3/uL (0.11-0.59); #Neutrophils 7.95 10x3/uL (1.40-6.50); %Basophils 0.4 % (0.0-1.0); %Eosinophils 3.8 % (0.0-10.0); %Lymphocytes 17.0 % (21.0-51.0); %Monocytes 10.6 % (0.0-10.0); %Neutrophils 67.3 % (42.0-75.0); Hematocrit 40.5 % (36.0-47.0); Hemoglobin 12.7 g/dL (12.0-16.0); Mean Corpuscular Hemoglobin 29.1 pg (27.0-31.0); Mean Corpuscular Volume 92.7 fL (78.0-98.0); Platelet Count 341 10x3/uL (130-400); Red Blood Cell (RBC) Count 4.37 mill/uL (4.20-5.40); White Blood Cell (WBC) Count 11.82 10x3/uL (4.8-10.8)
[2025-03-27 05:55] LABS: Anion Gap 11 mmol/L (10-20); BUN (Urea Nitrogen) 12 mg/dL (9.8-20.1); Calc. Creatinine Clearance 111 mL/min (70-130); Calcium 8.9 mg/dL (7.8-10.44); Carbon Dioxide 27 mmol/L (23-31); Chloride 102 mmol/L (98-107); Glucose 108 mg/dL (83-110); Potassium 3.9 mmol/L (3.5-5.1); Sodium 136 mmol/L (136-145)
[2025-03-28 04:26] LABS: #Basophils 0.07 10x3/uL (0.0-0.2); #Eosinophils 0.34 10x3/uL (0.0-0.7); #Monocytes 1.39 10x3/uL (0.11-0.59); #Neutrophils 9.40 10x3/uL (1.40-6.50); %Basophils 0.5 % (0.0-1.0); %Eosinophils 2.5 % (0.0-10.0); %Lymphocytes 16.7 % (21.0-51.0); %Monocytes 10.2 % (0.0-10.0); %Neutrophils 69.3 % (42.0-75.0); Hematocrit 42.9 % (36.0-47.0); Hemoglobin 13.5 g/dL (12.0-16.0); Mean Corpuscular Hemoglobin 29.0 pg (27.0-31.0); Mean Corpuscular Volume 92.1 fL (78.0-98.0); Platelet Count 330 10x3/uL (130-400); Red Blood Cell (RBC) Count 4.66 mill/uL (4.20-5.40); White Blood Cell (WBC) Count 13.58 10x3/uL (4.8-10.8)
[2025-03-28 04:53] LABS: Anion Gap 15 mmol/L (10-20); BUN (Urea Nitrogen) 13 mg/dL (9.8-20.1); Calc. Creatinine Clearance 113 mL/min (70-130); Calcium 9.2 mg/dL (7.8-10.44); Carbon Dioxide 23 mmol/L (23-31); Chloride 103 mmol/L (98-107); Glucose 122 mg/dL (83-110); Potassium 4.5 mmol/L (3.5-5.1); Sodium 136 mmol/L (136-145)
[2025-03-29 04:33] LABS: #Basophils 0.08 10x3/uL (0.0-0.2); #Eosinophils 0.30 10x3/uL (0.0-0.7); #Monocytes 1.49 10x3/uL (0.11-0.59); #Neutrophils 12.04 10x3/uL (1.40-6.50); %Basophils 0.5 % (0.0-1.0); %Eosinophils 1.9 % (0.0-10.0); %Lymphocytes 12.7 % (21.0-51.0); %Monocytes 9.2 % (0.0-10.0); %Neutrophils 74.6 % (42.0-75.0); Hematocrit 43.1 % (36.0-47.0); Hemoglobin 13.7 g/dL (12.0-16.0); Mean Corpuscular Hemoglobin 29.1 pg (27.0-31.0); Mean Corpuscular Volume 91.7 fL (78.0-98.0); Platelet Count 305 10x3/uL (130-400); Red Blood Cell (RBC) Count 4.70 mill/uL (4.20-5.40); White Blood Cell (WBC) Count 16.13 10x3/uL (4.8-10.8)
[2025-03-29 04:48] LABS: Anion Gap 13 mmol/L (10-20); BUN (Urea Nitrogen) 17 mg/dL (9.8-20.1); Calc. Creatinine Clearance 94 mL/min (70-130); Calcium 9.1 mg/dL (7.8-10.44); Carbon Dioxide 25 mmol/L (23-31); Chloride 101 mmol/L (98-107); Glucose 117 mg/dL (83-110); Potassium 4.4 mmol/L (3.5-5.1); Sodium 135 mmol/L (136-145)
[2025-03-30 05:59] LABS: #Basophils 0.06 10x3/uL (0.0-0.2); #Eosinophils 0.32 10x3/uL (0.0-0.7); #Monocytes 1.74 10x3/uL (0.11-0.59); #Neutrophils 11.09 10x3/uL (1.40-6.50); %Basophils 0.4 % (0.0-1.0); %Eosinophils 2.1 % (0.0-10.0); %Lymphocytes 12.6 % (21.0-51.0); %Monocytes 11.4 % (0.0-10.0); %Neutrophils 72.6 % (42.0-75.0); Hematocrit 43.3 % (36.0-47.0); Hemoglobin 13.3 g/dL (12.0-16.0); Mean Corpuscular Hemoglobin 28.3 pg (27.0-31.0); Mean Corpuscular Volume 92.1 fL (78.0-98.0); Platelet Count 293 10x3/uL (130-400); Red Blood Cell (RBC) Count 4.70 mill/uL (4.20-5.40); White Blood Cell (WBC) Count 15.27 10x3/uL (4.8-10.8)
[2025-03-30 06:14] LABS: Anion Gap 15 mmol/L (10-20); BUN (Urea Nitrogen) 16 mg/dL (9.8-20.1); Calc. Creatinine Clearance 96 mL/min (70-130); Calcium 8.9 mg/dL (7.8-10.44); Carbon Dioxide 23 mmol/L (23-31); Chloride 103 mmol/L (98-107); Glucose 103 mg/dL (83-110); Potassium 4.4 mmol/L (3.5-5.1); Sodium 137 mmol/L (136-145)
[2025-03-30] MEDS: Gabapentin 100 MG CAP PO SCH (21:27)
[2025-03-31 05:02] LABS: #Basophils 0.06 10x3/uL (0.0-0.2); #Eosinophils 0.18 10x3/uL (0.0-0.7); #Monocytes 1.70 10x3/uL (0.11-0.59); #Neutrophils 10.35 10x3/uL (1.40-6.50); %Basophils 0.4 % (0.0-1.0); %Eosinophils 1.2 % (0.0-10.0); %Lymphocytes 16.7 % (21.0-51.0); %Monocytes 11.4 % (0.0-10.0); %Neutrophils 69.6 % (42.0-75.0); Hematocrit 43.0 % (36.0-47.0); Hemoglobin 13.6 g/dL (12.0-16.0); Mean Corpuscular Hemoglobin 28.5 pg (27.0-31.0); Mean Corpuscular Volume 90.0 fL (78.0-98.0); Platelet Count 300 10x3/uL (130-400); Red Blood Cell (RBC) Count 4.78 mill/uL (4.20-5.40); White Blood Cell (WBC) Count 14.88 10x3/uL (4.8-10.8)
[2025-03-31 05:17] LABS: Anion Gap 14 mmol/L (10-20); BUN (Urea Nitrogen) 16 mg/dL (9.8-20.1); Calc. Creatinine Clearance 94 mL/min (70-130); Calcium 8.4 mg/dL (7.8-10.44); Carbon Dioxide 23 mmol/L (23-31); Chloride 104 mmol/L (98-107); Glucose 118 mg/dL (83-110); Potassium 4.2 mmol/L (3.5-5.1); Sodium 137 mmol/L (136-145)
[2025-04-01 04:51] LABS: #Basophils 0.07 10x3/uL (0.0-0.2); #Eosinophils 0.36 10x3/uL (0.0-0.7); #Monocytes 1.47 10x3/uL (0.11-0.59); #Neutrophils 11.12 10x3/uL (1.40-6.50); %Basophils 0.5 % (0.0-1.0); %Eosinophils 2.4 % (0.0-10.0); %Lymphocytes 14.3 % (21.0-51.0); %Monocytes 9.6 % (0.0-10.0); %Neutrophils 72.6 % (42.0-75.0); Hematocrit 39.9 % (36.0-47.0); Hemoglobin 12.4 g/dL (12.0-16.0); Mean Corpuscular Hemoglobin 29.0 pg (27.0-31.0); Mean Corpuscular Volume 93.2 fL (78.0-98.0); Platelet Count 303 10x3/uL (130-400); Red Blood Cell (RBC) Count 4.28 mill/uL (4.20-5.40); White Blood Cell (WBC) Count 15.30 10x3/uL (4.8-10.8)
[2025-04-01 05:21] LABS: Anion Gap 12 mmol/L (10-20); BUN (Urea Nitrogen) 27 mg/dL (9.8-20.1); Calc. Creatinine Clearance 100 mL/min (70-130); Calcium 9.0 mg/dL (7.8-10.44); Carbon Dioxide 26 mmol/L (23-31); Chloride 105 mmol/L (98-107); Glucose 118 mg/dL (83-110); Potassium 4.0 mmol/L (3.5-5.1); Sodium 139 mmol/L (136-145)
[2025-04-01 05:22] LABS: CRP, High Sensitivity at Bryan 14.36 mg/dL (< or = 0.5)
[2025-04-02 05:15] LABS: #Basophils 0.06 10x3/uL (0.0-0.2); #Eosinophils 0.38 10x3/uL (0.0-0.7); #Monocytes 1.10 10x3/uL (0.11-0.59); #Neutrophils 11.08 10x3/uL (1.40-6.50); %Basophils 0.4 % (0.0-1.0); %Eosinophils 2.6 % (0.0-10.0); %Lymphocytes 13.5 % (21.0-51.0); %Monocytes 7.5 % (0.0-10.0); %Neutrophils 75.5 % (42.0-75.0); Hematocrit 40.4 % (36.0-47.0); Hemoglobin 12.3 g/dL (12.0-16.0); Mean Corpuscular Hemoglobin 28.5 pg (27.0-31.0); Mean Corpuscular Volume 93.7 fL (78.0-98.0); Platelet Count 325 10x3/uL (130-400); Red Blood Cell (RBC) Count 4.31 mill/uL (4.20-5.40); White Blood Cell (WBC) Count 14.68 10x3/uL (4.8-10.8)
[2025-04-02 05:28] LABS: Anion Gap 16 mmol/L (10-20); BUN (Urea Nitrogen) 21 mg/dL (9.8-20.1); Calc. Creatinine Clearance 117 mL/min (70-130); Calcium 9.1 mg/dL (7.8-10.44); Carbon Dioxide 26 mmol/L (23-31); Chloride 104 mmol/L (98-107); Glucose 108 mg/dL (83-110); Potassium 4.0 mmol/L (3.5-5.1); Sodium 142 mmol/L (136-145)
[2025-04-02 05:29] LABS: CRP, High Sensitivity at Bryan 11.74 mg/dL (< or = 0.5)
[2025-04-02] MEDS: Enoxaparin 100 MG (1 mL) SYRINGE SC SCH (20:36)
[2025-04-03 05:18] LABS: #Basophils 0.06 10x3/uL (0.0-0.2); #Eosinophils 0.36 10x3/uL (0.0-0.7); #Monocytes 0.98 10x3/uL (0.11-0.59); #Neutrophils 8.82 10x3/uL (1.40-6.50); %Basophils 0.5 % (0.0-1.0); %Eosinophils 2.9 % (0.0-10.0); %Lymphocytes 16.6 % (21.0-51.0); %Monocytes 8.0 % (0.0-10.0); %Neutrophils 71.7 % (42.0-75.0); Hematocrit 38.3 % (36.0-47.0); Hemoglobin 11.7 g/dL (12.0-16.0); Mean Corpuscular Hemoglobin 28.3 pg (27.0-31.0); Mean Corpuscular Volume 92.5 fL (78.0-98.0); Platelet Count 317 10x3/uL (130-400); Red Blood Cell (RBC) Count 4.14 mill/uL (4.20-5.40); White Blood Cell (WBC) Count 12.30 10x3/uL (4.8-10.8)
[2025-04-03 05:40] LABS: Anion Gap 15 mmol/L (10-20); BUN (Urea Nitrogen) 18 mg/dL (9.8-20.1); Calc. Creatinine Clearance 113 mL/min (70-130); Calcium 8.8 mg/dL (7.8-10.44); Carbon Dioxide 26 mmol/L (23-31); Chloride 105 mmol/L (98-107); Glucose 96 mg/dL (83-110); Potassium 3.9 mmol/L (3.5-5.1); Sodium 142 mmol/L (136-145)
[2025-04-03] MEDS: Apixaban 5 MG TAB PO SCH (20:35)
[2025-04-04 05:29] LABS: #Basophils 0.04 10x3/uL (0.0-0.2); #Eosinophils 0.28 10x3/uL (0.0-0.7); #Monocytes 0.99 10x3/uL (0.11-0.59); #Neutrophils 8.62 10x3/uL (1.40-6.50); %Basophils 0.3 % (0.0-1.0); %Eosinophils 2.3 % (0.0-10.0); %Lymphocytes 17.9 % (21.0-51.0); %Monocytes 8.1 % (0.0-10.0); %Neutrophils 70.9 % (42.0-75.0); Hematocrit 37.2 % (36.0-47.0); Hemoglobin 11.8 g/dL (12.0-16.0); Mean Corpuscular Hemoglobin 29.1 pg (27.0-31.0); Mean Corpuscular Volume 91.6 fL (78.0-98.0); Platelet Count 331 10x3/uL (130-400); Red Blood Cell (RBC) Count 4.06 mill/uL (4.20-5.40); White Blood Cell (WBC) Count 12.17 10x3/uL (4.8-10.8)
[2025-04-04 05:39] LABS: Anion Gap 16 mmol/L (10-20); BUN (Urea Nitrogen) 21 mg/dL (9.8-20.1); Calc. Creatinine Clearance 121 mL/min (70-130); Calcium 8.8 mg/dL (7.8-10.44); Carbon Dioxide 23 mmol/L (23-31); Chloride 108 mmol/L (98-107); Glucose 103 mg/dL (83-110); Potassium 3.7 mmol/L (3.5-5.1); Sodium 143 mmol/L (136-145)
[2025-04-04 15:16] VITALS: BP 129/76; TEMP 98.7
[2025-04-10] MEDS ORDERED: Apixaban 5 MG TAB PO SCH (21:00)
== END 2025-04-04 15:45 | DRG 602 ==
LOC: ERS 18:06 → MSONC 20:23
PROVIDERS: ADMIT Internal Medicine; ATTEND Hospitalist
DX: L03.115 Cellulitis of right lower limb (principal); J69.0 Pneumonitis due to inhalation of food and vomit; I82.4Y2 Acute embolism and thrombosis of unspecified deep veins of left proximal lower extremity; Z66 Do not resuscitate; F03.90 Unspecified dementia, unspecified severity, without behavioral disturbance, psychotic disturbance, mood disturbance, and anxiety; M54.9 Dorsalgia, unspecified; R23.8 Other skin changes; F10.90 Alcohol use, unspecified, uncomplicated; L89.612 Pressure ulcer of right heel, stage 2; M54.2 Cervicalgia; S93.134A Subluxation of interphalangeal joint of right lesser toe(s), initial encounter; R26.89 Other abnormalities of gait and mobility; Z85.3 Personal history of malignant neoplasm of breast; Z98.890 Other specified postprocedural states; Z90.49 Acquired absence of other specified parts of digestive tract; Z90.710 Acquired absence of both cervix and uterus; Z88.5 Allergy status to narcotic agent; Z88.0 Allergy status to penicillin; Z88.2 Allergy status to sulfonamides; Z79.899 Other long term (current) drug therapy; Z79.891 Long term (current) use of opiate analgesic; Z87.891 Personal history of nicotine dependence
CPT/HCPCS: 36415; 71045; 72050; 80048; 80053; 80076; 80202; 81001; 83605; 84145; 85025; 86141; 87040; 87070; 87081; 87205; 87636; 93923; 96365; 96366; 96367; 97139; J0690; J0692; J1650; J1885; J2543; J3372; J3373; J3490; J7030; J7050